=== PATIENT | male | born 1960 | race Caucasian/White ===

== ENCOUNTER 2024-09-09 21:45 | Emergency (ER) | payer OTHER ==
[~2024-09-09] VITALS: Ht 177.8 cm; Wt 125.0 kg
[~2024-09-09 21:45] MED LIST: ANTIVERT25 MG PO; AUGMENTIN 875-1 EACH PO; TRANSDERM-SCOP1 EA TD
[2024-09-10] MEDS ORDERED: TRIMETHOPRIM/SULFAMETHOXAZOLE 1 EA TAB PO ONE (04:00)
[2024-09-10] MEDS ORDERED: BACTRIM DS TAB1 EACH PO (04:02)
[2024-09-10 04:08] VITALS: BP 142/80
== END 2024-09-10 04:08 | disposition home or self-care (01) ==
LOC: ED 21:45
DX: N49.2 Inflammatory disorders of scrotum (principal); Z79.899 Other long term (current) drug therapy; Z88.5 Allergy status to narcotic agent; F17.200 Nicotine dependence, unspecified, uncomplicated
CPT/HCPCS: 76870; 99284; A9270